=== PATIENT | female | born 1935 ===

== ENCOUNTER 2021-09-17 17:36 | Inpatient (IN) | payer MEDICARE ==
[2021-09-17] MEDS ORDERED: Aspirin Chewable 81 MG TAB ONE (19:25)
[2021-09-17 19:29] LABS: #Basophils 0.1 thou/uL (0.0-0.2); #Monocytes 0.4 thou/uL (0.11-0.59); #Neutrophils 2.7 thou/uL (1.40-6.50); %Basophils 1.6 % (0.0-1.0); %Eosinophils 0.3 % (0.0-10.0); %Lymphocytes 23.3 % (21.0-51.0); %Monocytes 9.9 % (0.0-10.0); Hemoglobin 11.4 g/dL (12.0-16.0); Mean Corpuscular HGB CONC 33.5 g/dL (32.0-36.0); Mean Corpuscular Volume 89.6 fL (78.0-98.0); Platelet Count 114 thou/uL (130-400); RBC Distribution Width 13.5 % (11.5-14.5); White Blood Cell (WBC) Count 4.2 thou/uL (4.8-10.8)
[2021-09-17 19:31] LABS: ALT (SGPT) 14 U/L (8-55); AST (SGOT) 26 U/L (5-34); Albumin 3.4 g/dL (3.4-4.8); Alkaline Phosphatase 53 U/L (40-110); Anion Gap 14 mmol/L (10-20); BUN (Urea Nitrogen) 18 mg/dL (9.8-20.1); Bilirubin, Total 0.4 mg/dL (0.2-1.2); CK (CPK) 90 U/L (29-168); Calc. Creatinine Clearance 0 mL/min (70-130); Calcium 8.9 mg/dL (7.8-10.44); Carbon Dioxide 22 mmol/L (23-31); Chloride 110 mmol/L (98-107); Glucose 107 mg/dL (83-110); Magnesium 1.5 mg/dL (1.6-2.6); Potassium 3.4 mmol/L (3.5-5.1); Protein, Total 6.4 g/dL (5.8-8.1); Sodium 143 mmol/L (136-145)
[2021-09-17 19:43] LABS: MDiff Complete? YES; Ovalocytes SLIGHT = 2-5 cells (100X) (0-1/hpf); Platelet Morphology Comment Appears Decreased
[2021-09-17 19:53] LABS: CKMB 1.2 ng/mL (0-6.6)
[2021-09-17 23:29] LABS: CKMB 1.4 ng/mL (0-6.6)
[2021-09-17] MEDS ORDERED: Enoxaparin Sodium 60 MG/0.6 ML SYRINGE ONE (23:43)
[2021-09-18] MEDS ORDERED: Magnesium 2 GM/50 ML BAG (IN WATER) ONE
[2021-09-18] MEDS ORDERED: Potassium Chloride 20 MEQ TAB PO SCH (00:45)
[2021-09-18] MEDS ORDERED: Acetaminophen 325 MG TAB PO PRN (00:56)
[2021-09-18] MEDS ORDERED: Ondansetron PF 4 MG/2 ML Vial IVP PRN (00:56)
[2021-09-18] MEDS ORDERED: Senokot S 8.6-50 MG TAB PO PRN (00:56)
[2021-09-18] MEDS ORDERED: Bisacodyl 5 MG TAB PO PRN (00:56)
[2021-09-18] MEDS ORDERED: hydrALAZINE 20 MG/ML VIAL SLOW IVP PRN (01:12)
[2021-09-18] MEDS ORDERED: Nitroglycerin 0.4 MG TAB (25 Tab Bottle) SL PRN (01:13)
[2021-09-18 01:40] VITALS: BMI 22.1
[2021-09-18] MEDS ORDERED: Potassium Chloride 20 MEQ TAB ONE (01:43)
[2021-09-18] MEDS ORDERED: Azithromycin 500 MG in Sodium Chloride 0.9% 250 ML 250 ML IVPB SCH (02:00)
[2021-09-18] MEDS ORDERED: Azithromycin 500 MG VIAL ONE (02:15)
[2021-09-18] MEDS ORDERED: cefTRIAXone\\ROCEPHIN 1 GM VIAL ONE (02:15)
[2021-09-18 02:44] LABS: Troponin I 0.138 ng/mL (< 0.028)
[2021-09-18 03:30] LABS: SARS-CoV-2 NAA Rapid Test DETECTED (NotDetected)
[2021-09-18] MEDS: cefTRIAXone\\ROCEPHIN 1 GM in Sodium Chloride 0.9% 100 ML IVPB SCH (03:39)
[2021-09-18 06:06] LABS: Bilirubin Negative (Negative); Blood, Urine Negative (Negative); Glucose, Urine (Dipstick) Negative (Negative); Ketone, Urine 15 mg/dL (Negative); Leukocyte Moderate (Negative); Nitrite Positive (Negative); Protein, Urine (Dipstick) Negative (Neg-Trace); Specific Gravity, Urine 1.015 (1.005-1.030); Urobilinogen 0.2 mg/dL (Less than 2); pH, Urine 5.5 (5.0-9.0)
[2021-09-18 06:07] LABS: Clarity Clear (Clear)
[2021-09-18 06:08] LABS: Bacteria/HPF None Seen HPF (None Seen); Squamous Epithelial 0-3 HPF (0-3); WBC/HPF Greater than 50 HPF (0-3)
[2021-09-18 06:46] LABS: Hemoglobin A1c 6.2 % (4.0-6.0)
[2021-09-18 06:56] LABS: Hemoglobin 10.9 g/dL (12.0-16.0); Mean Corpuscular HGB CONC 32.4 g/dL (32.0-36.0); Mean Corpuscular Hemoglobin 29.4 pg (27.0-31.0); Mean Corpuscular Volume 90.7 fL (78.0-98.0); Mean Platelet Volume 8.8 fL (7.4-10.4); Platelet Count 114 thou/uL (130-400); RBC Distribution Width 13.4 % (11.5-14.5); White Blood Cell (WBC) Count 3.6 thou/uL (4.8-10.8)
[2021-09-18 07:01] LABS: Anion Gap 18 mmol/L (10-20); BUN (Urea Nitrogen) 19 mg/dL (9.8-20.1); Calc. Creatinine Clearance 35 mL/min (70-130); Calcium 8.4 mg/dL (7.8-10.44); Carbon Dioxide 16 mmol/L (23-31); Chloride 111 mmol/L (98-107); Glucose 122 mg/dL (83-110); Potassium 3.7 mmol/L (3.5-5.1); Sodium 141 mmol/L (136-145)
[2021-09-18 07:09] LABS: Troponin I 0.121 ng/mL (< 0.028)
[2021-09-18 07:20] LABS: #Lymphocytes 1.2 thou/uL (1.20-3.40); #Monocytes 0.4 thou/uL (0.11-0.59); #Neutrophils 1.9 thou/uL (1.40-6.50); %Basophils 0.2 % (0.0-1.0); %Eosinophils 0.6 % (0.0-10.0); %Lymphocytes 32.8 % (21.0-51.0); %Neutrophils 54.4 % (42.0-75.0); Band 2 % (5-11); Lymphocytes 38 % (21-51); MDiff Complete? YES; Monocytes 10 % (0-10); Neutrophil 50 % (42-75); Platelet Morphology Comment Appears Decreased; Polychromasia SLIGHT = 2-3 cells (100X) (0-2/hpf)
[2021-09-18 07:24] LABS: Free Thyroxine Index 2.22 (1.4-3.1); T4 9.2 ug/dL (4.87-11.72)
[2021-09-18] MEDS ORDERED: Electrolyte Replacement Protocol 1 EACH FS SCH (07:45)
[2021-09-18 08:02] LABS: Magnesium 2.1 mg/dL (1.6-2.6)
[2021-09-18] MEDS ORDERED: Ascorbic Acid 500 mg Chewable Tablet ONE (08:08)
[2021-09-18] MEDS ORDERED: Zinc Sulfate 220 MG CAP ONE (08:08)
[2021-09-18] MEDS ORDERED: Enoxaparin Sodium 60 MG/0.6 ML SYRINGE ONE (08:08)
[2021-09-18] MEDS ORDERED: Famotidine 20 MG TAB ONE (08:08)
[2021-09-18] MEDS: Zinc Sulfate 220 MG CAP PO SCH (08:18)
[2021-09-18] MEDS: Ascorbic Acid 500 mg Chewable Tablet PO SCH (08:18)
[2021-09-18] MEDS: Enoxaparin Sodium 60 MG/0.6 ML SYRINGE SC SCH ×2 (08:18→22:12)
[2021-09-18] MEDS: Cholecalciferol (Vitamin D3) 400 UNITS TAB PO SCH (08:18)
[2021-09-18] MEDS ORDERED: Famotidine/PF 20 mg/2ml Vial SLOW IVP SCH (09:00)
[2021-09-18] MEDS ORDERED: Iopamidol 370 76% 100 ML VIAL ONE (14:25)
[2021-09-18 21:16] LABS: Anion Gap 19 mmol/L (10-20); BUN (Urea Nitrogen) 18 mg/dL (9.8-20.1); Calc. Creatinine Clearance 32 mL/min (70-130); Calcium 8.6 mg/dL (7.8-10.44); Carbon Dioxide 19 mmol/L (23-31); Chloride 108 mmol/L (98-107); Glucose 137 mg/dL (83-110); Potassium 3.6 mmol/L (3.5-5.1); Sodium 142 mmol/L (136-145)
[2021-09-18 21:21] LABS: Troponin I 0.105 ng/mL (< 0.028)
[2021-09-18] MEDS: Atorvastatin Calcium 20 MG TAB PO SCH (22:13)
[2021-09-18 22:17] LABS: Bilirubin Negative (Negative); Blood, Urine Negative (Negative); Clarity Clear (Clear); Glucose, Urine (Dipstick) Normal (Negative); Ketone, Urine 20 mg/dL (Negative); Leukocyte 500 Leu/uL (Negative); Nitrite 1+ (Negative); Protein, Urine (Dipstick) 20 mg/dL (Neg-Trace); Specific Gravity, Urine 1.046 (1.002-1.036); Squamous Epithelial 0-3 HPF (0-3); Urobilinogen Normal mg/dL (Less than 2); WBC/HPF 21-50 HPF (0-3); pH, Urine 5.5 (5.0-9.0)
[2021-09-18 22:32] LABS: Bacteria/HPF 2+ HPF (None Seen)
[2021-09-18 22:33] LABS: Urine Culture Reflex Yes Yes
[2021-09-19] MEDS: Amiodarone 450 MG, Admixture Fee 1 EACH in Dextrose 5% in Water 250 ML IVPB SCH ×3 (00:21→22:57)
[2021-09-19] MEDS: traZODone HCl 50 MG TAB PO SCH ×2 (00:24→20:07)
[2021-09-19] MEDS: cefTRIAXone\\ROCEPHIN 1 GM in Sodium Chloride 0.9% 100 ML IVPB SCH (04:08)
[2021-09-19] MEDS: PHOS-NAK 1 PKT PACK PO SCH ×2 (08:41→11:23)
[2021-09-19] MEDS: Ascorbic Acid 500 mg Chewable Tablet PO SCH (08:42)
[2021-09-19] MEDS: Zinc Sulfate 220 MG CAP PO SCH (08:42)
[2021-09-19] MEDS: Cholecalciferol (Vitamin D3) 400 UNITS TAB PO SCH (08:42)
[2021-09-19] MEDS: Famotidine/PF 20 mg/2ml Vial SLOW IVP SCH (08:44)
[2021-09-19] MEDS ORDERED: FLU VACC QS2021-22(65YR UP)/PF 240 MCG/0.7 ML SYRINGE IM ONE (09:00)
[2021-09-19 13:12] LABS: INR-International Normal Ratio 2.5; Prothrombin Time 27.3 sec (12.0-14.7)
[2021-09-19] MEDS: Atorvastatin Calcium 20 MG TAB PO SCH (20:07)
[2021-09-19] MEDS: Enoxaparin Sodium 60 MG/0.6 ML SYRINGE SC SCH (20:07)
[2021-09-20] MEDS: cefTRIAXone\\ROCEPHIN 1 GM in Sodium Chloride 0.9% 100 ML IVPB SCH (03:10)
[2021-09-20 04:33] LABS: INR-International Normal Ratio 2.6; Prothrombin Time 28.6 sec (12.0-14.7)
[2021-09-20] MEDS: Ascorbic Acid 500 mg Chewable Tablet PO SCH (08:30)
[2021-09-20] MEDS: Zinc Sulfate 220 MG CAP PO SCH (08:30)
[2021-09-20] MEDS: Amiodarone 200 MG TAB PO SCH ×2 (08:30→21:00)
[2021-09-20] MEDS: Cholecalciferol (Vitamin D3) 400 UNITS TAB PO SCH (08:30)
[2021-09-20] MEDS: Famotidine/PF 20 mg/2ml Vial SLOW IVP SCH (08:30)
[2021-09-20] MEDS ORDERED: Famotidine 20 MG TAB PO SCH (10:00)
[2021-09-20] MEDS: traZODone HCl 50 MG TAB PO SCH (21:00)
[2021-09-20] MEDS: Atorvastatin Calcium 20 MG TAB PO SCH (21:00)
[2021-09-20] MEDS: Enoxaparin Sodium 60 MG/0.6 ML SYRINGE SC SCH (21:10)
[2021-09-21] MEDS: cefTRIAXone\\ROCEPHIN 1 GM in Sodium Chloride 0.9% 100 ML IVPB SCH (03:35)
[2021-09-21 04:01] LABS: #Eosinphils 0.1 thou/uL (0.0-0.7); #Monocytes 0.4 thou/uL (0.11-0.59); #Neutrophils 3.1 thou/uL (1.40-6.50); %Basophils 0.1 % (0.0-1.0); %Eosinophils 1.6 % (0.0-10.0); %Monocytes 9.4 % (0.0-10.0); %Neutrophils 66.9 % (42.0-75.0); Mean Corpuscular HGB CONC 33.7 g/dL (32.0-36.0); Mean Corpuscular Hemoglobin 29.6 pg (27.0-31.0); Mean Corpuscular Volume 87.8 fL (78.0-98.0); Mean Platelet Volume 8.3 fL (7.4-10.4); Platelet Count 168 thou/uL (130-400); RBC Distribution Width 13.2 % (11.5-14.5); White Blood Cell (WBC) Count 4.7 thou/uL (4.8-10.8)
[2021-09-21 04:07] LABS: INR-International Normal Ratio 2.1; Prothrombin Time 23.7 sec (12.0-14.7)
[2021-09-21 04:20] LABS: Anion Gap 18 mmol/L (10-20); BUN (Urea Nitrogen) 11 mg/dL (9.8-20.1); Calc. Creatinine Clearance 39 mL/min (70-130); Calcium 8.5 mg/dL (7.8-10.44); Carbon Dioxide 16 mmol/L (23-31); Chloride 112 mmol/L (98-107); Glucose 118 mg/dL (83-110); Potassium 3.7 mmol/L (3.5-5.1); Sodium 142 mmol/L (136-145)
[2021-09-21] MEDS: Cholecalciferol (Vitamin D3) 400 UNITS TAB PO SCH (09:34)
[2021-09-21] MEDS: Zinc Sulfate 220 MG CAP PO SCH (09:34)
[2021-09-21] MEDS: Famotidine 20 MG TAB PO SCH (09:34)
[2021-09-21] MEDS: Amiodarone 200 MG TAB PO SCH ×2 (09:35→20:37)
[2021-09-21] MEDS: Ascorbic Acid 500 mg Chewable Tablet PO SCH (09:35)
[2021-09-21] MEDS: Enoxaparin Sodium 60 MG/0.6 ML SYRINGE SC SCH (20:36)
[2021-09-21] MEDS: Atorvastatin Calcium 20 MG TAB PO SCH (20:36)
[2021-09-21] MEDS: traZODone HCl 50 MG TAB PO SCH (20:37)
[2021-09-22] MEDS: cefTRIAXone\\ROCEPHIN 1 GM in Sodium Chloride 0.9% 100 ML IVPB SCH (03:05)
[2021-09-22 04:20] LABS: INR-International Normal Ratio 2.2; Prothrombin Time 25.1 sec (12.0-14.7)
[2021-09-22] MEDS: Zinc Sulfate 220 MG CAP PO SCH (08:13)
[2021-09-22] MEDS: Cholecalciferol (Vitamin D3) 400 UNITS TAB PO SCH (08:13)
[2021-09-22] MEDS: Ascorbic Acid 500 mg Chewable Tablet PO SCH (08:14)
[2021-09-22] MEDS: Famotidine 20 MG TAB PO SCH (08:14)
[2021-09-22] MEDS: Amiodarone 200 MG TAB PO SCH ×2 (08:14→20:15)
[2021-09-22] MEDS ORDERED: Benzonatate 100 MG CAP PO PRN (14:38)
[2021-09-22] MEDS: Atorvastatin Calcium 20 MG TAB PO SCH (20:15)
[2021-09-22] MEDS: Metoprolol Tartrate 25 MG TAB PO SCH (20:15)
[2021-09-22] MEDS: traZODone HCl 50 MG TAB PO SCH (20:16)
[2021-09-22] MEDS: Enoxaparin Sodium 40 MG/0.4 ML SYRINGE SC SCH (21:13)
[2021-09-23] MEDS: cefTRIAXone\\ROCEPHIN 1 GM in Sodium Chloride 0.9% 100 ML IVPB SCH (03:35)
[2021-09-23 08:09] LABS: #Eosinphils 0.1 thou/uL (0.0-0.7); #Lymphocytes 0.9 thou/uL (1.20-3.40); #Monocytes 0.5 thou/uL (0.11-0.59); #Neutrophils 4.4 thou/uL (1.40-6.50); %Basophils 0.2 % (0.0-1.0); %Eosinophils 1.3 % (0.0-10.0); %Lymphocytes 15.2 % (21.0-51.0); %Monocytes 8.7 % (0.0-10.0); %Neutrophils 74.5 % (42.0-75.0); Hemoglobin 10.3 g/dL (12.0-16.0); Mean Corpuscular HGB CONC 33.8 g/dL (32.0-36.0); Mean Corpuscular Hemoglobin 29.4 pg (27.0-31.0); Mean Platelet Volume 8.2 fL (7.4-10.4); Platelet Count 205 thou/uL (130-400); RBC Distribution Width 13.3 % (11.5-14.5); Red Blood Cell (RBC) Count 3.49 mill/uL (4.20-5.40); White Blood Cell (WBC) Count 5.9 thou/uL (4.8-10.8)
[2021-09-23 08:31] LABS: ALT (SGPT) 15 U/L (8-55); AST (SGOT) 19 U/L (5-34); Alkaline Phosphatase 49 U/L (40-110); Anion Gap 13 mmol/L (10-20); BUN (Urea Nitrogen) 14 mg/dL (9.8-20.1); Bilirubin, Total 0.3 mg/dL (0.2-1.2); Calc. Creatinine Clearance 33 mL/min (70-130); Calcium 8.9 mg/dL (7.8-10.44); Carbon Dioxide 21 mmol/L (23-31); Chloride 111 mmol/L (98-107); Globulin 2.8 g/dL (2.4-3.5); Glucose 121 mg/dL (83-110); Potassium 3.4 mmol/L (3.5-5.1); Protein, Total 5.8 g/dL (5.8-8.1); Sodium 142 mmol/L (136-145)
[2021-09-23 08:45] LABS: Prothrombin Time 31.6 sec (12.0-14.7)
[2021-09-23] MEDS ORDERED: Potassium Chloride 20 MEQ TAB PO SCH (11:00)
[2021-09-23] MEDS: Cholecalciferol (Vitamin D3) 400 UNITS TAB PO SCH (13:30)
[2021-09-23] MEDS: Amiodarone 200 MG TAB PO SCH ×2 (13:30→20:17)
[2021-09-23] MEDS: Ascorbic Acid 500 mg Chewable Tablet PO SCH (13:30)
[2021-09-23] MEDS: Metoprolol Tartrate 25 MG TAB PO SCH ×2 (13:30→20:18)
[2021-09-23] MEDS: Famotidine 20 MG TAB PO SCH (13:30)
[2021-09-23] MEDS: Zinc Sulfate 220 MG CAP PO SCH (13:31)
[2021-09-23] MEDS: Atorvastatin Calcium 20 MG TAB PO SCH (20:17)
[2021-09-23] MEDS: traZODone HCl 50 MG TAB PO SCH (20:18)
[2021-09-23] MEDS: Enoxaparin Sodium 40 MG/0.4 ML SYRINGE SC SCH (20:19)
[2021-09-23] MEDS ORDERED: OLANZapine 10 MG VIAL IM SCH (23:00)
[2021-09-23] MEDS ORDERED: Sterile Water 10 ML VIAL FS PRN (23:00)
[2021-09-24] MEDS: cefTRIAXone\\ROCEPHIN 1 GM in Sodium Chloride 0.9% 100 ML IVPB SCH (03:27)
[2021-09-24] MEDS: Metoprolol Tartrate 25 MG TAB PO SCH ×2 (10:38→21:16)
[2021-09-24] MEDS: Famotidine 20 MG TAB PO SCH (10:39)
[2021-09-24] MEDS: Zinc Sulfate 220 MG CAP PO SCH (10:39)
[2021-09-24] MEDS: Amiodarone 200 MG TAB PO SCH ×2 (10:39→21:16)
[2021-09-24] MEDS: Cholecalciferol (Vitamin D3) 400 UNITS TAB PO SCH (10:39)
[2021-09-24] MEDS: Ascorbic Acid 500 mg Chewable Tablet PO SCH (10:39)
[2021-09-24 12:05] LABS: Anion Gap 14 mmol/L (10-20); BUN (Urea Nitrogen) 16 mg/dL (9.8-20.1); Calc. Creatinine Clearance 34 mL/min (70-130); Calcium 9.1 mg/dL (7.8-10.44); Carbon Dioxide 21 mmol/L (23-31); Chloride 112 mmol/L (98-107); Glucose 144 mg/dL (83-110); INR-International Normal Ratio 2.5; Potassium 3.5 mmol/L (3.5-5.1); Prothrombin Time 27.1 sec (12.0-14.7); Sodium 143 mmol/L (136-145)
[2021-09-24] MEDS ORDERED: Potassium Chloride 20 MEQ TAB PO SCH (13:15)
[2021-09-24] MEDS: Atorvastatin Calcium 20 MG TAB PO SCH (21:16)
[2021-09-24] MEDS: traZODone HCl 50 MG TAB PO SCH (21:16)
[2021-09-24] MEDS: Enoxaparin Sodium 40 MG/0.4 ML SYRINGE SC SCH (21:17)
[2021-09-24 23:26] VITALS: BP 145/75; TEMP 98.2
[2021-09-25] MEDS: cefTRIAXone\\ROCEPHIN 1 GM in Sodium Chloride 0.9% 100 ML IVPB SCH (03:35)
== END 2021-09-25 05:48 | disposition expired | DRG 308 ==
LOC: ERS 17:36 → ERHOLD 23:56 → 2SW 09-18 16:28 → CCU 09-18 23:55 → OBSVTOIN 09-19 01:41 → T4-B 09-22 19:29
PROVIDERS: ADMIT Internal Medicine; ATTEND Family Medicine
PROC: 4B02XTZ Measurement of Cardiac Defibrillator, External Approach (ICD-10-PCS; principal; 2021-09-19)
PROC: 8E0ZXY6 Isolation (ICD-10-PCS; 2021-09-19)
DX: I47.2 Ventricular tachycardia (principal); Z66 Do not resuscitate; Z51.5 Encounter for palliative care; U07.1 COVID-19; G93.41 Metabolic encephalopathy; N39.0 Urinary tract infection, site not specified; I42.9 Cardiomyopathy, unspecified; I50.22 Chronic systolic (congestive) heart failure; I13.0 Hypertensive heart and chronic kidney disease with heart failure and stage 1 through stage 4 chronic kidney disease, or unspecified chronic kidney disease; E87.2 Acidosis; F03.91 Unspecified dementia, unspecified severity, with behavioral disturbance; E11.22 Type 2 diabetes mellitus with diabetic chronic kidney disease; N18.9 Chronic kidney disease, unspecified; I25.10 Atherosclerotic heart disease of native coronary artery without angina pectoris; F32.A Depression, unspecified; E83.42 Hypomagnesemia; E87.6 Hypokalemia; R79.89 Other specified abnormal findings of blood chemistry; I08.3 Combined rheumatic disorders of mitral, aortic and tricuspid valves; D63.1 Anemia in chronic kidney disease; I49.01 Ventricular fibrillation; I48.0 Paroxysmal atrial fibrillation; F41.9 Anxiety disorder, unspecified; F32.9 Major depressive disorder, single episode, unspecified; E03.9 Hypothyroidism, unspecified; B96.20 Unspecified Escherichia coli [E. coli] as the cause of diseases classified elsewhere; N28.89 Other specified disorders of kidney and ureter; I46.2 Cardiac arrest due to underlying cardiac condition; Z28.21 Immunization not carried out because of patient refusal; Z78.1 Physical restraint status; Z88.5 Allergy status to narcotic agent; Z95.810 Presence of automatic (implantable) cardiac defibrillator; Z79.890 Hormone replacement therapy; Z79.4 Long term (current) use of insulin; Z95.4 Presence of other heart-valve replacement
CPT/HCPCS: 36415; 36416; 71045; 71275; 80048; 80053; 81003; 81015; 82550; 82553; 83036; 83735; 83880; 84100; 84436; 84443; 84479; 84484; 85025; 85610; 86140; 87040; 87077; 87086; 87186; 93005; 93010; 93306; 96372; 96375; G0378; J0282; J0456; J0696; J1650; J2358; J2405; J3475; J3490; J7050; J7070; Q9967; S0028; U0002